=== PATIENT | female | born 1970 | race Hispanic/Latino ===

== ENCOUNTER 2018-04-12 07:49 | Emergency (ER) | payer BC ==
[2018-04-12] MEDS ORDERED: Ondansetron ODT 4 MG TAB ONE (08:47)
--- NOTE | 2018-04-12 09:26 | RAD ---
LEFT KNEE FOUR VIEWS: HISTORY: A 47-year-old female with a history of left knee injury following trauma. FINDINGS: No evidence of a fracture, dislocation, or other significant acute post traumatic process. In the an terior distal femoral diaphysis, there is a circumscribed, 0.7 cm in diameter area of bone lucency, e tiology uncertain from this study. This could conceivably represent a small lytic bone lesion. None mergent follow-up MRI study with attention to this region should be considered. IMPRESSION: 1. No acute fracture or dislocation. 2. Circumscribed anterior bone lesion in the distal femoral metaphysis, of uncertain etiology or sig nificance. Consider nonemergent follow-up MRI for further assessment of this. POS: AYAD
--- NOTE | 2018-04-12 11:00 | RAD ---
LEFT SHOULDER THREE VIEWS: HISTORY: A 47-year-old female with a history of left shoulder pain following an injury. FINDINGS: There is a vertically oriented fracture through the greater tuberosity of the left humerus. No dislo cation on this two view study. IMPRESSION: Essentially nondisplaced vertical fracture through the left greater tuberosity, without evidence of d islocation on this study. POS: ADA
--- NOTE | 2018-04-12 11:42 | RAD ---
LEFT WRIST FOUR VIEWS: HISTORY: A 47-year-old female with a history of left wrist pain following an injury and dislocated shoulder. FINDINGS: No fracture, dislocation, or other significant acute osseous abnormality. IMPRESSION: Unremarkable left wrist. POS: ADA
== END 2018-04-12 11:08 | disposition home or self-care (01) ==
LOC: ERS 07:49
DX: S42.92XA Fracture of left shoulder girdle, part unspecified, initial encounter for closed fracture (principal); S63.502A Unspecified sprain of left wrist, initial encounter; I10 Essential (primary) hypertension; Z79.899 Other long term (current) drug therapy; W19.XXXA Unspecified fall, initial encounter
CPT/HCPCS: 96372; J2270; Q0162

== ENCOUNTER 2019-11-18 19:08 | Observation (INO) | payer BC ==
[2019-11-18] MEDS ORDERED: Dextrose 5% in Water 1,000 ML IV PRN (20:18)
[2019-11-18] MEDS ORDERED: Dextrose 50% Abboject 50 ML SYRINGE SLOW IVP PRN (20:18)
[2019-11-18] MEDS ORDERED: Ondansetron PF 4 MG/2 ML Vial IVP PRN (20:18)
[2019-11-18] MEDS ORDERED: hydrALAZINE 20 MG/ML VIAL SLOW IVP PRN (20:18)
[2019-11-18] MEDS ORDERED: CEFAZOLIN 2 GM in Premix Bag 1 BAG IVPB SCH (20:30)
--- NOTE | 2019-11-18 20:38 | HP ---
CHIEF COMPLAINT: Acute cholecystitis. HISTORY OF PRESENT ILLNESS: The patient is a very pleasant 49-year-old female. 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 She gives a recent history of 3 or 4 days of persistent postprandial epigastric abdominal pain associated with nausea and vomiting. She presented to [facility] Emergency Room this afternoon for further evaluation. Gallbladder ultrasound was obtained, revealing a 2.5-cm gallstone with associated sludge. Her bile duct was not felt to be normal. Her laboratory studies were obtained, revealed an elevated white cell count of 11.2, hemoglobin is 12.9. Chemistry panel including all liver function tests are within normal limits. Amylase is normal at 66. She was transferred to my service here at [facility]. She was treated at the outside facility with Ketoralac and ondansetron. PAST MEDICAL HISTORY: Significant for seasonal allergies, rheumatoid arthritis, and hypertension. PAST SURGICAL HISTORY: None. MEDICATIONS: 1. Lisinopril. 2. Singulair. Other medications that she cannot recall. She is not on any blood thinners. ALLERGIES: NO KNOWN DRUG ALLERGIES. PRIMARY CARE PHYSICIAN: Dr. Kirit Black. VACUUM CASTER: Dr. Vaca. LUMP RECEIVER: Dr. Thompson. PERSONAL AND SOCIAL HISTORY: She is single with one 26-year-old daughter. 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 She smokes about 3 cigarettes per day. She does not drink alcohol. She lives by herself in [place]. REVIEW OF SYSTEMS: Otherwise unremarkable. FAMILY HISTORY: Noncontributory. PHYSICAL EXAMINATION: GENERAL: She is a well-developed, well-nourished, pleasant, alert, female, resting in bed, in no acute distress. Two of her family members are present at bedside. HEAD, EYES, EARS, NOSE, AND THROAT: Unremarkable. NECK: Supple without mass or tenderness. LUNGS: Clear to auscultation throughout. CARDIAC: Regular rate and rhythm without murmur. ABDOMEN: Soft. She has mild tenderness to palpation in the right upper quadrant without current Begum sign. EXTREMITIES: Unremarkable. ASSESSMENT: The patient with symptomatic cholelithiasis and cholecystitis. PLAN: Laparoscopic cholecystectomy. I discussed the operation in detail with the patient. She understands all and agrees to proceed with surgery. This will be performed tomorrow morning. I anticipate this to be an outpatient procedure tomorrow. Job ID: [id number]
[2019-11-18] MEDS: Famotidine/PF 20 mg/2ml Vial SLOW IVP SCH (21:32)
[2019-11-18] MEDS: Sodium Chloride 0.9% 1,000 ML IV SCH (21:32)
[2019-11-18 22:12] VITALS: BMI 31.7
[2019-11-19] MEDS: Sodium Chloride 0.9% 1,000 ML IV SCH ×2 (05:46→13:59)
[2019-11-19] MEDS: Famotidine/PF 20 mg/2ml Vial SLOW IVP SCH (07:54)
[2019-11-19] MEDS: Morphine 2 MG/ML SYRINGE SLOW IVP PRN ×2 (07:54→14:47)
[2019-11-19] MEDS ORDERED: Lidocaine 1% w/Epinephrine 1:100K 20 ML VIAL ONE (08:57)
[2019-11-19] MEDS ORDERED: Bupivacaine 0.25% HCL 30 ML VIAL ONE (08:57)
[2019-11-19] MEDS ORDERED: Fentanyl 100 MCG/2 ML VIAL ONE ×3 (09:05→11:55)
[2019-11-19] MEDS ORDERED: Meperidine HCl/PF 25 MG/ML VIAL SLOW IVP PRN (09:27)
[2019-11-19] MEDS ORDERED: Promethazine HCl 25 MG/ML VIAL SLOW IVP PRN (09:27)
[2019-11-19] MEDS ORDERED: Morphine Sulfate 2 MG/ML SYRINGE SLOW IVP PRN (09:27)
[2019-11-19] MEDS ORDERED: Ondansetron HCl/PF 4 MG/2 ML Vial IVP PRN (09:27)
[2019-11-19] MEDS ORDERED: PACU-Morphine 4MG/ML VIAL SLOW IVP PRN (09:27)
[2019-11-19] MEDS ORDERED: HYDROmorphone 2 MG/ML VIAL SLOW IVP PRN (09:27)
[2019-11-19] MEDS ORDERED: Promethazine HCl 25 MG/ML VIAL IM PRN (09:27)
[2019-11-19] MEDS ORDERED: Midazolam HCl 2 mg/2 ml Vial ONE (09:28)
[2019-11-19] MEDS ORDERED: Rocuronium Bromide 10 MG/ML (10ML VIAL) ONE (10:18)
[2019-11-19] MEDS ORDERED: Dexamethasone 20 MG/5 ML VIAL ONE (10:18)
[2019-11-19] MEDS ORDERED: Lidocaine 1% PF 5 ML VIAL ONE (10:18)
[2019-11-19] MEDS ORDERED: PROPOFOL 200 MG/20 ML VIAL ONE (10:18)
[2019-11-19] MEDS ORDERED: Ondansetron PF 4 MG/2 ML Vial ONE (10:18)
[2019-11-19] MEDS ORDERED: Glycopyrrolate 0.2 MG/ML 5 ML SYRINGE ONE (10:18)
[2019-11-19 15:55] VITALS: BP 149/96; TEMP 98.1
--- NOTE | 2019-11-20 02:50 | OP ---
DATE OF PROCEDURE: 11/19/2019 PREOPERATIVE DIAGNOSIS: Cholelithiasis with acute cholecystitis. POSTOPERATIVE DIAGNOSIS: Cholelithiasis with acute cholecystitis. PROCEDURE PERFORMED: Laparoscopic cholecystectomy. ANESTHESIA: General endotracheal. INDICATIONS: The patient is a 49-year-old female. She presented to the emergency room last night with complaints of epigastric abdominal pain with nausea and vomiting. This has been occurring for about 3 days. She is taken to the operative room at this time for laparoscopic cholecystectomy. DESCRIPTION OF PROCEDURE: Informed consent was obtained. The patient was taken to the operating room, where general endotracheal anesthesia was obtained with the patient in supine position. The abdomen was prepped with ChloraPrep and draped in sterile fashion. Local anesthetic was infiltrated and 11 mm infraumbilical incision was created through which a Veress needle was passed into the peritoneal cavity. A pneumoperitoneum was established with carbon dioxide up to pressure of 15 mmHg. An 11 mm trocar port was passed through the same incision and laparoscopic camera was passed through this port. Under direct vision, I placed 3 additional 5 mm right upper quadrant ports. Attention was turned to the gallbladder. This was markedly enlarged and distended. It extended several cm beyond the liver edge inferiorly. It was far too distended to grasp. I attempted to decompress the gallbladder with an aspiration needle, but the contents were so thick that I could not aspirate any material. I therefore made an opening in the fundus of the gallbladder and a thick sludgy material emanated from this. I passed the suction device into the lumen of the gallbladder, aspirated all of the thickened contents. I was then able to grasp the gallbladder and retract it in a cephalad direction. There were extensive adhesions to the gallbladder and these were taken down carefully with electrocautery. At the apex of the gallbladder, I carefully dissected to identify the cystic duct and cystic artery. Due to the marked edema and inflammation of the tissues, the dissection was challenging, but it was performed carefully and without complication. Both structures were identified and divided between clips leaving 2 on the side to remain within the abdomen. There was a posterior branch of the artery that was divided as well in the same fashion. The gallbladder was then dissected out of the gallbladder fossa with difficulty using higher voltage electrocautery. Hemostasis was maintained during dissection. Eventually, the gallbladder was dissected free from the liver. It was removed through the periumbilical port site. I had to extend the incision substantially in order to remove the distended gallbladder with large gallstones within it. When the gallbladder was removed, the fascial defect was closed with a [id number] suture of 0 Vicryl placed with the GraNee needle. The right upper quadrant was then extensively irrigated. All irrigant was aspirated. Meticulous hemostasis was ensured. All ports and instruments were removed under direct vision. Pneumoperitoneum was carefully evacuated. A 0.25% Marcaine with epinephrine was infiltrated at each port site. Skin edges approximated with 4-0 Monocryl subcuticular suture. Dermabond was placed externally. There were no complications. The patient tolerated the procedure well and was taken to recovery room in stable condition. Job ID: [id number]
--- NOTE | 2019-11-20 11:19 | DIS ---
DATE OF ADMISSION: 11/18/2019 DATE OF DISCHARGE: 11/19/2019 ADMISSION DIAGNOSIS: Cholelithiasis and cholecystitis. DISCHARGE DIAGNOSIS: Cholelithiasis and cholecystitis. PROCEDURE PERFORMED: Laparoscopic cholecystectomy on November 19, 2019. ADMISSION HISTORY: Patient is a 49-year-old female. She presented with a 3-day history of right upper quadrant abdominal pain with nausea and vomiting and documented cholelithiasis. She was admitted late in the evening with plans for surgery the following day. HOSPITAL COURSE: She was taken to the operating room the day after admission, where an uneventful laparoscopic cholecystectomy was performed. She had a very large and markedly inflamed gallbladder. Her surgery was uneventful. She tolerated it well. Later that day, she was tolerating liquids and ambulating and her pain was well controlled and she was discharged home. She was given a discharge prescription for tramadol and asked to follow up with myself in 2 weeks for routine followup. Job ID: [id number]
== END 2019-11-19 16:03 | disposition home or self-care (01) ==
LOC: SURG A 19:08 → INTOOBSV 19:08
PROVIDERS: ADMIT Specialist; ATTEND Specialist
PROC: 0FT44ZZ Resection of Gallbladder, Percutaneous Endoscopic Approach (ICD-10-PCS; principal; 2019-11-19)
DX: K80.12 Calculus of gallbladder with acute and chronic cholecystitis without obstruction (principal); I10 Essential (primary) hypertension; F17.210 Nicotine dependence, cigarettes, uncomplicated; Z79.899 Other long term (current) drug therapy
CPT/HCPCS: 88304; 96361; 96375; 96376; G0378; J0360; J0690; J1100; J2001; J2250; J2270; J2405; J2704; J3010; S0020; S0028